=== PATIENT | male | born 1965 | race Caucasian/White ===

== ENCOUNTER 2021-02-19 00:23 | Emergency (ER) | payer SELFPAY ==
[~2021-02-19] VITALS: Ht 175.3 cm; Wt 75.0 kg
[2021-02-19 01:02] VITALS: BP 134/93
== END 2021-02-19 01:37 ==
LOC: ER 00:23
DX: Z02.89 Encounter for other administrative examinations (principal); R03.0 Elevated blood-pressure reading, without diagnosis of hypertension
CPT/HCPCS: 99283